=== PATIENT | male | born 1955 | race Caucasian/White ===

== ENCOUNTER 2017-08-06 06:19 | Outpatient (CLI) | END 2017-08-06 06:20 | disposition short-term general hospital (02) | LOC: AMBL 06:19 | PROVIDERS: ATTEND Family Medicine | DX: R10.9 Unspecified abdominal pain (principal); M79.605 Pain in left leg; M79.604 Pain in right leg; K59.00 Constipation, unspecified; C34.90 Malignant neoplasm of unspecified part of unspecified bronchus or lung; R53.1 Weakness; D49.6 Neoplasm of unspecified behavior of brain ==

== ENCOUNTER 2017-08-10 17:11 | Outpatient (CLI) | END 2017-08-10 17:12 | disposition short-term general hospital (02) | LOC: AMBL 17:11 | PROVIDERS: ATTEND Emergency Medicine | DX: R56.9 Unspecified convulsions (principal); C34.90 Malignant neoplasm of unspecified part of unspecified bronchus or lung; C79.31 Secondary malignant neoplasm of brain; R60.0 Localized edema; R00.0 Tachycardia, unspecified; R32 Unspecified urinary incontinence ==